=== PATIENT | female | born 1980 ===

== ENCOUNTER 2016-08-02 20:43 | Emergency (ER) | payer BC, MEDICAID ==
[2016-08-02 20:43] VITALS: BMI 32.2
[2016-08-02 21:45] VITALS: BP 121/78; PULSE 77; RESP 20; TEMP 97.3; O2SAT 98
--- NOTE | 2016-08-02 23:23 | C.PDOC ---
History Of Present Illness 35 y/o female presents to the ED with complains of right lower back and buttock pain radiating down right leg which onset today. Pt reports similar symptoms in the past. Pt denies numbness/weakness of extremities, saddle anesthesia, urinary or bowel changes or any other complaints. Pt took 400 mg Motrin at 1200 today with no relief. Time Seen by Provider: 08/02/16 22:38 Chief Complaint (Nursing): Back Pain History Per: Patient History/Exam Limitations: no limitations Onset/Duration Of Symptoms: Hrs Current Symptoms Are (Timing): Still Present Quality Of Discomfort: "Pain" Severity: Moderate Associated Symptoms: None Recent travel outside of the [place]: No Past Medical History Reviewed: Historical Data, Nursing Documentation, Vital Signs Vital Signs: Last Vital Signs Temp 97.3 F L 08/02/16 21:43 Pulse 77 08/02/16 21:43 Resp 20 08/02/16 21:43 BP 121/78 08/02/16 21:43 Pulse Ox 98 08/02/16 23:27 - Medical History PMH: Hypothyroidism - [facility] Procedures EXTRACTION OF POC, LOW CERVICAL, OPEN APPROACH (07/01/15) INTRODUCE OF ADHESION BARRIER INTO FEM REPROD, OPEN APPROACH (07/01/15) Family History: States: Unknown Family Hx - Social History Hx Tobacco Use: No Hx Alcohol Use: No Hx Substance Use: No - Immunization History Hx Tetanus Toxoid Vaccination: No Hx Influenza Vaccination: No Hx Pneumococcal Vaccination: No Review Of Systems Except As Marked, All Systems Reviewed And Found Negative. Genitourinary: Negative for: Incontinence Musculoskeletal: Positive for: Back Pain Neurological: Negative for: Weakness, Numbness Physical Exam - Physical Exam Appears: Non-toxic, No Acute Distress Skin: Warm, Dry, No Rash Head: Atraumatic, Normacephalic Neck: Normal ROM, Supple Chest: Symmetrical Cardiovascular: Rhythm Regular Respiratory: Normal Breath Sounds, No Rales, No Rhonchi, No Wheezing Back: No Vertebral Tenderness, Paraspinal Tenderness (right sciatic notch) Extremity: Normal ROM Extremity: Bilateral: Atraumatic Neurological/Psych: Oriented x3, Normal Motor, Normal Sensation ED Course And Treatment O2 Sat by Pulse Oximetry: 98 (on room air) Pulse Ox Interpretation: Normal Medical Decision Making Medical Decision Making: pt with recurrrent sciatica; will tx with nsaids and muscle relaxants f/u pmd and recommend pt. Disposition Counseled Patient/Family Regarding: Diagnosis, Need For Followup, Rx Given - Disposition Disposition: HOME/ ROUTINE Disposition Time: 23:41 Condition: IMPROVED Additional Instructions: FOllow up with your PMD Dr [place] in a few days. Avoid heavy lifting or prolonged sitting. Take 600 mg of ibuprofen (with food) every 6 hours for pain, Take muscle relaxant at bedtime- makes you sleepy. No driving or operating machinery while taking this medicine. 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 - Scribe Statement The provider has reviewed the documentation as recorded by the Scriboctavio Ennis All medical record entries made by the Meme were at my direction and personally dictated by me. I have reviewed the chart and agree that the record accurately reflects my personal performance of the history, physical exam, medical decision making, and the department course for this patient. I have also personally directed, reviewed, and agree with the discharge instructions and disposition.
== END 2016-08-02 23:51 | disposition home or self-care (01) ==
LOC: C.ER 20:43
DX: M54.41 Lumbago with sciatica, right side (principal)
CPT/HCPCS: 96372; 99283; J1885